=== PATIENT | male | born 1990 | race Caucasian/White ===

== ENCOUNTER 2018-01-05 21:05 | Emergency (ER) | payer MEDICAID ==
[~2018-01-05] VITALS: Ht 177.8 cm; Wt 91.6 kg
--- NOTE | 2018-01-05 21:33 | NUR ---
PATIENT WAS MSE BY DR COOPER IN ROOM 05A. PATIENT A & O X4.
[2018-01-05] MEDS ORDERED: IBUPROFEN 600 MG TABLET PO ONE (21:45)
[2018-01-05] MEDS ORDERED: IBUPROFEN 600 MG TABLET ONE (21:47)
--- NOTE | 2018-01-05 22:13 | NUR ---
Patient discharged to home in stable conditon. Written and verbal after care instructions given. Patient verbalizes understanding of instructions.
[2018-01-05 22:14] VITALS: BP 110/75
== END 2018-01-05 22:18 | disposition home or self-care (01) ==
LOC: ER 21:14
DX: S63.602A Unspecified sprain of left thumb, initial encounter (principal); F17.210 Nicotine dependence, cigarettes, uncomplicated; W18.30XA Fall on same level, unspecified, initial encounter; Y93.89 Activity, other specified; Y92.89 Other specified places as the place of occurrence of the external cause; Y99.8 Other external cause status
CPT/HCPCS: 73110; 73140; A4663